=== PATIENT | male | born 1955 | race Caucasian/White ===

== ENCOUNTER 2017-12-08 09:30 | Inpatient (IN) | payer OTHER ==
[~2017-12-08] VITALS: Ht 175.2 cm; Wt 98.1 kg
[~2017-12-08 09:30] MED LIST: ATARAX25 MG PO; ATIVAN0.5 MG PO; BP MEDS; FLEXERIL10 MG PO; FLOMAX0.4 MG; HYDROCODONE BIT1 T11 PO; HYDRODIURIL25 MG PO; LISINOPRIL10 MG PO; MOTRIN800 MG PO; Motrin,Rufen800 MG PO; Orphenadrine C100 MG PO; PANTOPRAZOLE SO40 MG PO; PREDNISONE20 MG PO; PRINIVIL5 M1 PO; PROTONIX40 MG PO; ULTRAM50 MG PO; VICODIN 500 MG-1 TAB PO; ZOFRAN ODT4 MG SL
[2017-12-08 09:38] VITALS: BP 137/101
[2017-12-08 09:49] VITALS: BP 134/92
[2017-12-08 09:51] LABS: BASO # 0.1 10*3/uL (0.0-0.1); BASO % 1.1 % (0.0-1.0); EOS # 0.2 10*3/uL (0.0-0.4); EOS % 3.2 % (1.0-4.0); HEMATOCRIT 47.8 % (42.0-52.0); HEMOGLOBIN 16.9 g/dl (14.0-18.0); LYMPH # 1.7 10*3/uL (1.3-4.4); LYMPH % 26.3 % (27.0-41.0); MEAN CELL VOLUME 84.6 fl (80.0-94.0); MEAN CORPUSCULAR HGB 29.9 pg (27.0-31.0); MEAN CORPUSCULAR HGB CONC 35.4 g/dl (33.0-37.0); MEAN PLATELET VOLUME 10.8 fl (9.6-12.3); MONO # 0.5 10*3/uL (0.1-1.0); MONO % 7.3 % (3.0-9.0); NEUT % 61.2 % (47.0-73.0); PLATELET COUNT AUTOMATED 207 10*3/uL (130-400); RED BLOOD COUNT 5.65 10*6/uL (4.50-5.90); RED CELL DISTRI WIDTH 12.5 % (0-14.5); WHITE BLOOD COUNT 6.5 10*3/uL (4.8-10.8)
[2017-12-08 10:00] LABS: ACT PARTIAL THROMBO TIME 26.7 SECONDS (20.8-31.5); INTERNATIONAL NORM RATIO 0.9 (2.0-3.5)
[2017-12-08 10:07] VITALS: BP 130/82
[2017-12-08 10:08] LABS: ALBUMIN 3.5 gm/dl (3.1-4.5); ALKALINE PHOSPHATASE 96 U/L (45-117); BUN 14 mg/dl (7-24); CHLORIDE 110 mmol/L (98-107); CREATININE 1.03 mg/dL (0.70-1.30); POTASSIUM 3.7 mmol/L (3.5-5.1); SGOT/AST 26 IU/L (3-35); SGPT/ALT 38 U/L (12-78); SODIUM 142 mmol/L (136-145); TOTAL PROTEIN 6.9 gm/dL (6.4-8.2)
[2017-12-08 10:09] LABS: TROPONIN I 0.021 ng/ml (<0.045)
[2017-12-08 10:50] VITALS: BP 130/91
[2017-12-08 12:00] VITALS: BP 135/101
[2017-12-08 16:00] VITALS: BP 120/77
== END 2017-12-08 19:58 | disposition short-term general hospital (02) | DRG 282 ==
LOC: ED 09:30 → EDHOLD 10:20 → 4E 10:53
PROVIDERS: Nurse Practitioner Family
DX: I21.4 Non-ST elevation (NSTEMI) myocardial infarction (principal); E87.8 Other disorders of electrolyte and fluid balance, not elsewhere classified; E83.41 Hypermagnesemia; I10 Essential (primary) hypertension; R74.8 Abnormal levels of other serum enzymes; J01.80 Other acute sinusitis; D72.810 Lymphocytopenia; Z79.899 Other long term (current) drug therapy; Z82.49 Family history of ischemic heart disease and other diseases of the circulatory system

== ENCOUNTER 2017-12-19 12:24 | Emergency (ER) | payer OTHER ==
[~2017-12-19] VITALS: Ht 175.2 cm; Wt 95.3 kg
--- NOTE | ~2017-12-19 | EKG ---
[place], [place] ELECTROCARDIOGRAM REPORT NAME: KELTON ACEVEDO UNIT #: [id number] ROOM: DOCTOR: REBA LUGO,ROMY BIRTHDATE: [birth year] DOS: 12/19/2017 TIME: 1640 hours. IMPRESSION: 1. Sinus rhythm, sinus bradycardia. 2. Left ventricular hypertrophy.. 3. Normal QT intervals. ROMY BRITTON MD CM:EKGRPT:ELECTROCARDIOGRAM REPORT 1424 14 ROMY BRITTON MD
--- NOTE | ~2017-12-19 | EKG ---
[place], [place] ELECTROCARDIOGRAM REPORT NAME: KELTON ACEVEDO UNIT #: [id number] ROOM: DOCTOR: REBA LUGO,ROMY BIRTHDATE: [birth year] DOS: 12/19/2017 TIME: 1232 hours. IMPRESSION: 1. Sinus rhythm. 2. Sinus bradycardia. 3. Normal QT interval. ROMY BRITTON MD CM:EKGRPT:ELECTROCARDIOGRAM REPORT 1425 2130 ROMY BRITTON MD
[2017-12-19 12:48] LABS: BASO # 0.1 10*3/uL (0.0-0.1); BASO % 1.1 % (0.0-1.0); EOS # 0.2 10*3/uL (0.0-0.4); EOS % 2.2 % (1.0-4.0); HEMATOCRIT 48.9 % (42.0-52.0); HEMOGLOBIN 16.9 g/dl (14.0-18.0); LYMPH # 1.8 10*3/uL (1.3-4.4); LYMPH % 23.2 % (27.0-41.0); MEAN CORPUSCULAR HGB 30.1 pg (27.0-31.0); MEAN CORPUSCULAR HGB CONC 34.6 g/dl (33.0-37.0); MONO # 0.8 10*3/uL (0.1-1.0); MONO % 10.1 % (3.0-9.0); NEUT # 4.8 10*3/uL (2.3-7.9); NEUT % 62.7 % (47.0-73.0); PLATELET COUNT AUTOMATED 235 10*3/uL (130-400); RED BLOOD COUNT 5.62 10*6/uL (4.50-5.90); RED CELL DISTRI WIDTH 12.3 % (0-14.5); WHITE BLOOD COUNT 7.6 10*3/uL (4.8-10.8)
[2017-12-19 12:57] LABS: ACT PARTIAL THROMBO TIME 27.1 SECONDS (20.8-31.5)
[2017-12-19] MEDS ORDERED: LISINOPRIL10 M1 PO (13:01)
[2017-12-19] MEDS ORDERED: NITROGLYCERIN0.4 MG SL (13:01)
[2017-12-19] MEDS ORDERED: ASPIRIN ADULT L81 M1 PO (13:02)
[2017-12-19] MEDS ORDERED: BRILINTA90 M1 PO (13:02)
[2017-12-19] MEDS ORDERED: ATORVASTATIN CA40 M1 PO (13:02)
[2017-12-19 13:05] LABS: ALBUMIN 3.7 gm/dl (3.1-4.5); ALKALINE PHOSPHATASE 103 U/L (45-117); BUN 15 mg/dl (7-24); CHLORIDE 109 mmol/L (98-107); CREATININE 1.09 mg/dL (0.70-1.30); POTASSIUM 4.4 mmol/L (3.5-5.1); SGOT/AST 24 IU/L (3-35); SGPT/ALT 44 U/L (12-78); SODIUM 140 mmol/L (136-145); TOTAL PROTEIN 7.1 gm/dL (6.4-8.2)
[2017-12-19 13:10] LABS: TROPONIN I < 0.015 ng/ml (<0.045)
[2017-12-19 17:41] VITALS: BP 132/78
== END 2017-12-19 18:05 | disposition home or self-care (01) ==
LOC: ED 12:24
PROVIDERS: Emergency Medicine
DX: R07.89 Other chest pain (principal); I10 Essential (primary) hypertension

== ENCOUNTER 2019-04-21 18:20 | Emergency (ER) | payer OTHER ==
[~2019-04-21] VITALS: Ht 175.2 cm; Wt 93.9 kg
[~2019-04-21 18:20] MED LIST changes: +ASPIRIN ADULT L81 M1 PO; +ATORVASTATIN CA40 M1 PO; +BRILINTA90 M1 PO; +LISINOPRIL10 M1 PO; +NITROGLYCERIN0.4 MG SL
[2019-04-21 20:27] VITALS: BP 112/72
== END 2019-04-21 20:19 | disposition home or self-care (01) ==
LOC: ED 18:20
DX: I10 Essential (primary) hypertension (principal); I25.2 Old myocardial infarction; F17.200 Nicotine dependence, unspecified, uncomplicated; Z79.82 Long term (current) use of aspirin; Z79.899 Other long term (current) drug therapy

== ENCOUNTER 2019-09-06 10:02 | Emergency (ER) | payer OTHER ==
[~2019-09-06] VITALS: Ht 175.2 cm; Wt 93.0 kg
[2019-09-06 10:03] VITALS: BP 152/93
[2019-09-06] MEDS ORDERED: MEDROL DOSEPAK4 MG PO (12:57)
[2019-09-06] MEDS ORDERED: METHOCARBAMOL500 M1 PO (12:57)
[2019-09-06] MEDS ORDERED: NORCO 5-325 TA1 EACH PO (12:57)
== END 2019-09-06 13:08 | disposition home or self-care (01) ==
LOC: ED 10:02
DX: S01.01XA Laceration without foreign body of scalp, initial encounter (principal); S16.1XXA Strain of muscle, fascia and tendon at neck level, initial encounter; Z79.82 Long term (current) use of aspirin; Z79.899 Other long term (current) drug therapy; W20.8XXA Other cause of strike by thrown, projected or falling object, initial encounter; Y93.89 Activity, other specified; Y92.69 Other specified industrial and construction area as the place of occurrence of the external cause; Y99.8 Other external cause status

== ENCOUNTER 2020-10-08 15:13 | Emergency (ER) | payer OTHER ==
[~2020-10-08] VITALS: Ht 175.2 cm; Wt 99.8 kg
[~2020-10-08 15:13] MED LIST changes: +MEDROL DOSEPAK4 MG PO; +METHOCARBAMOL500 M1 PO; +NORCO 5-325 TA1 EACH PO
[2020-10-08 15:30] VITALS: BP 135/79
[2020-10-08 16:07] LABS: BILIRUBIN Negative (Negative); BLOOD Negative (Negative); CLARITY Clear (Clear); COLOR Yellow (Yellow); GLUCOSE Negative (Negative); KETONE Negative (Negative); LEUKO ESTERASE Negative (Negative); NITRITE Negative (Negative); PH 5.5 (4.5-8.0); SPECIFIC GRAVITY 1.015 (1.001-1.030); UROBILINOGEN 0.2 E.U./dl (0.0-1.0)
[2020-10-08 16:28] LABS: WBC 0-2 wbc/hpf (0-5)
[2020-10-08 16:29] LABS: BACTERIA TRACE
== END 2020-10-08 17:20 | disposition home or self-care (01) ==
LOC: ED 15:13
PROVIDERS: Emergency Medicine
DX: K59.00 Constipation, unspecified (principal); R33.9 Retention of urine, unspecified; Z79.899 Other long term (current) drug therapy

== ENCOUNTER 2021-03-01 02:36 | Inpatient (IN) | payer OTHER ==
[2021-03-01] VITALS (9 sets, daily range): BP systolic 130–202; BP diastolic 70–102
[~2021-03-01] VITALS: Ht 175.3 cm; Wt 97.7 kg
[2021-03-01 03:28] LABS: BASO # 0.1 10*3/uL (0.0-0.1); BASO % 1.1 % (0.0-1.0); EOS # 0.2 10*3/uL (0.0-0.4); EOS % 3.5 % (1.0-4.0); HEMATOCRIT 51.3 % (42.0-52.0); LYMPH # 2.4 10*3/uL (1.3-4.4); LYMPH % 37.2 % (27.0-41.0); MEAN CELL VOLUME 88.9 fl (80.0-94.0); MEAN CORPUSCULAR HGB CONC 33.7 g/dl (33.0-37.0); MEAN PLATELET VOLUME 10.9 fl (9.6-12.3); MONO # 0.7 10*3/uL (0.1-1.0); MONO % 10.8 % (3.0-9.0); NEUT % 46.8 % (47.0-73.0); PLATELET COUNT AUTOMATED 214 10*3/uL (130-400); RED BLOOD COUNT 5.77 10*6/uL (4.50-5.90); RED CELL DISTRI WIDTH 12.2 % (0-14.5); WHITE BLOOD COUNT 6.3 10*3/uL (4.8-10.8)
[2021-03-01 03:41] LABS: ALBUMIN 3.5 gm/dl (3.1-4.5); ALKALINE PHOSPHATASE 103 U/L (45-117); BUN 16 mg/dl (7-24); CHLORIDE 108 mmol/L (98-107); LIPASE 92 U/L (73-393); POTASSIUM 3.7 mmol/L (3.5-5.1); SGOT/AST 29 IU/L (3-35); SGPT/ALT 50 U/L (12-78); SODIUM 139 mmol/L (136-145); TOTAL PROTEIN 7.1 gm/dL (6.4-8.2)
[2021-03-01 03:45] LABS: TROPONIN I < 0.015 ng/ml (<0.045)
[2021-03-01 07:37] LABS: BILIRUBIN Negative (Negative); BLOOD Negative (Negative); CLARITY Clear (Clear); COLOR Yellow (Yellow); GLUCOSE Negative (Negative); KETONE Negative (Negative); LEUKO ESTERASE Negative (Negative); NITRITE Negative (Negative); PH 5.5 (4.5-8.0); SPECIFIC GRAVITY >= 1.030 (1.001-1.030); UROBILINOGEN 0.2 E.U./dl (0.0-1.0)
[2021-03-01 07:55] LABS: EPITHELIAL CELLS 16-20
[2021-03-01] MEDS ORDERED: CLOPIDOGREL75 MG PO (08:44)
[2021-03-02] VITALS: BP 124/82
[2021-03-02 06:00] LABS: ALKALINE PHOSPHATASE 91 U/L (45-117); BUN 10 mg/dl (7-24); CHLORIDE 105 mmol/L (98-107); CHOLESTEROL 145 mg/dL (<200); CREATININE 0.98 mg/dL (0.70-1.30); HDL CHOLESTEROL 35 mg/dl (40-60); LDL CHOLESTEROL 77 mg/dL (9-159); LIPASE 90 U/L (73-393); POTASSIUM 4.4 mmol/L (3.5-5.1); SGOT/AST 17 IU/L (3-35); SGPT/ALT 30 U/L (12-78); SODIUM 138 mmol/L (136-145); TOTAL PROTEIN 6.1 gm/dL (6.4-8.2); TRIGLYCERIDES 163 mg/dl (<150); VLDL CHOLESTEROL 33 mg/dL (6-40)
[2021-03-02 06:06] LABS: FREE T4 0.87 ng/dl (0.76-1.46)
[2021-03-02 06:21] LABS: ACT PARTIAL THROMBO TIME 28.9 SECONDS (20.0-32.1)
[2021-03-02 06:24] LABS: BASO # 0.1 10*3/uL (0.0-0.1); BASO % 0.6 % (0.0-1.0); EOS # 0.2 10*3/uL (0.0-0.4); EOS % 1.7 % (1.0-4.0); HEMATOCRIT 45.1 % (42.0-52.0); MEAN CELL VOLUME 91.5 fl (80.0-94.0); MEAN CORPUSCULAR HGB 30.2 pg (27.0-31.0); MEAN PLATELET VOLUME 11.1 fl (9.6-12.3); MONO # 0.8 10*3/uL (0.1-1.0); MONO % 9.5 % (3.0-9.0); NEUT # 5.7 10*3/uL (2.3-7.9); NEUT % 64.6 % (47.0-73.0); PLATELET COUNT AUTOMATED 184 10*3/uL (130-400); RED BLOOD COUNT 4.93 10*6/uL (4.50-5.90); RED CELL DISTRI WIDTH 12.4 % (0-14.5); WHITE BLOOD COUNT 8.8 10*3/uL (4.8-10.8)
[2021-03-02 08:00] VITALS: BP 110/66
[2021-03-02 09:27] LABS: VITAMIN D, 25-HYDROXY 25.7 ng/mL (30-100)
[2021-03-02 12:00] VITALS: BP 124/74
[2021-03-02 16:00] VITALS: BP 135/67
[2021-03-02 20:00] VITALS: BP 157/92
[2021-03-03] VITALS (33 sets, daily range): BP systolic 117–180; BP diastolic 67–95
[2021-03-03 06:27] LABS: BASO # 0.1 10*3/uL (0.0-0.1); BASO % 0.6 % (0.0-1.0); EOS # 0.2 10*3/uL (0.0-0.4); EOS % 1.9 % (1.0-4.0); LYMPH # 1.5 10*3/uL (1.3-4.4); MEAN CELL VOLUME 91.1 fl (80.0-94.0); MEAN CORPUSCULAR HGB 29.8 pg (27.0-31.0); MEAN CORPUSCULAR HGB CONC 32.7 g/dl (33.0-37.0); MEAN PLATELET VOLUME 11.4 fl (9.6-12.3); MONO # 0.8 10*3/uL (0.1-1.0); MONO % 9.8 % (3.0-9.0); NEUT # 5.5 10*3/uL (2.3-7.9); NEUT % 68.2 % (47.0-73.0); PLATELET COUNT AUTOMATED 177 10*3/uL (130-400); RED BLOOD COUNT 4.83 10*6/uL (4.50-5.90); RED CELL DISTRI WIDTH 12.2 % (0-14.5); WHITE BLOOD COUNT 8.1 10*3/uL (4.8-10.8)
[2021-03-03 06:29] LABS: CHLORIDE 106 mmol/L (98-107); POTASSIUM 3.7 mmol/L (3.5-5.1); SODIUM 138 mmol/L (136-145)
[2021-03-03 06:39] LABS: BUN 8 mg/dl (7-24); CREATININE 0.85 mg/dL (0.70-1.30)
== END 2021-03-03 22:12 | disposition short-term general hospital (02) | DRG 439 ==
LOC: ED 02:36 → 4E 07:11 → EDHOLD 07:11 → 4E 07:33 → ICCU 03-03 13:22
PROVIDERS: Emergency Medicine; Student in an Organized Health Care Education/Training Program; ADMIT Student in an Organized Health Care Education/Training Program; ATTEND Student in an Organized Health Care Education/Training Program
DX: K85.90 Acute pancreatitis without necrosis or infection, unspecified (principal); R65.10 Systemic inflammatory response syndrome (SIRS) of non-infectious origin without acute organ dysfunction; E87.2 Acidosis; K59.00 Constipation, unspecified; I10 Essential (primary) hypertension; R73.9 Hyperglycemia, unspecified; K59.09 Other constipation; E87.8 Other disorders of electrolyte and fluid balance, not elsewhere classified; Z95.5 Presence of coronary angioplasty implant and graft; Z82.49 Family history of ischemic heart disease and other diseases of the circulatory system; Z82.3 Family history of stroke; I25.2 Old myocardial infarction

== ENCOUNTER 2022-08-10 12:31 | Emergency (ER) | payer OTHER ==
[~2022-08-10] VITALS: Ht 175.2 cm; Wt 102.1 kg
[~2022-08-10 12:31] MED LIST changes: +CLOPIDOGREL75 MG PO
[2022-08-10 12:34] VITALS: BP 120/79
== END 2022-08-10 15:22 | disposition home or self-care (01) ==
LOC: ED 12:31
DX: S39.012A Strain of muscle, fascia and tendon of lower back, initial encounter (principal); S40.011A Contusion of right shoulder, initial encounter; S80.01XA Contusion of right knee, initial encounter; I10 Essential (primary) hypertension; Z90.89 Acquired absence of other organs; Z98.890 Other specified postprocedural states; Z79.82 Long term (current) use of aspirin; Z79.899 Other long term (current) drug therapy; W18.39XA Other fall on same level, initial encounter; Y93.89 Activity, other specified; Y92.89 Other specified places as the place of occurrence of the external cause; Y99.8 Other external cause status

== ENCOUNTER → 2023-11-04 | Outpatient (CLI) | payer OTHER, MEDICARE | END | disposition home or self-care (01) | LOC: RAD 09:33 | PROVIDERS: ATTEND Nurse Practitioner | DX: R68.84 Jaw pain (principal) ==

== ENCOUNTER 2025-09-26 09:53 | Emergency (ER) | payer OTHER, MEDICARE ==
[~2025-09-26] VITALS: Ht 175.2 cm; Wt 104.3 kg
[2025-09-26 10:03] VITALS: BP 130/76
[2025-09-26] MEDS ORDERED: Ondansetron Hydrochloride 4 MG TAB PO ONE (10:40)
[2025-09-26] MEDS ORDERED: Acetaminophen/Oxycodone 5 MG/325 MG TABLET PO ONE (10:40)
[2025-09-26] MEDS ORDERED: HYDROCODONE-AC1 EAC1 PO (11:37)
[2025-09-26] MEDS ORDERED: Ondansetron4 MG PO (11:37)
[2025-09-26] MEDS ORDERED: METHOCARBAMOL750 M1 PO (11:37)
== END 2025-09-26 11:37 | disposition home or self-care (01) ==
LOC: ED 09:53
DX: S16.1XXA Strain of muscle, fascia and tendon at neck level, initial encounter (principal); S00.01XA Abrasion of scalp, initial encounter; Z79.899 Other long term (current) drug therapy; Z90.89 Acquired absence of other organs; Z98.890 Other specified postprocedural states; W01.0XXA Fall on same level from slipping, tripping and stumbling without subsequent striking against object, initial encounter; Y93.89 Activity, other specified; Y92.89 Other specified places as the place of occurrence of the external cause; Y99.8 Other external cause status